=== PATIENT | female | born 1980 | race Caucasian/White ===

== ENCOUNTER 2022-09-19 08:03 | Emergency (ER) | payer OTHER ==
[~2022-09-19] VITALS: Ht 157.5 cm; Wt 64.9 kg
[2022-09-19 08:07] VITALS: BP 115/68
--- NOTE | 2022-09-19 08:15 | NUR ---
41YO FEMALE PT C/O HEADACHE , COUGH AND INTERMITTENT FEVERS X5DAYS. MILD RELIEF AFTER ROBITUSSIN OR TYLENOL. MOIST COUGH PRESENT. GRACE LUNG SOUNDS. DENIES CHEST PAIN, SOB, N/V/D OR ANYONE SICK AT HOME. PT AAOX4, RESPIRATIONS EVEN AND UNLABORED. HOB POSITIONED PER COMFORT. HX:DENIES NKA
--- NOTE | 2022-09-19 08:16 | NUR ---
41/F PRESENTS TO ED WITH C/O COUGH, INTERMITTENT FEVERS AND HEADACHE X3 DAYS, REPORTS TAKING TYLENOL AND OTC COUGH MEDS WITH NO RELIEF. PATIENT DENIES SOB, N/V/D OR RECENT SICK CONTACTS.
--- NOTE | 2022-09-19 08:49 | NUR ---
pt swabbed for covid(hong) and flu. walked and handed to lab
[2022-09-19] MEDS ORDERED: FLONAS NS ×2 (09:00→09:19)
[2022-09-19] MEDS ORDERED: SUD30 PO ×2 (09:00→09:19)
[2022-09-19] MEDS ORDERED: AMOX1TAB8 PO ×2 (09:00→09:19)
[2022-09-19] MEDS ORDERED: BENZ150C2 PO ×2 (09:00→09:19)
[2022-09-19] MEDS ORDERED: PROM118S5 PO ×2 (09:00→09:19)
--- NOTE | 2022-09-19 09:15 | NUR ---
Patient discharged with v/s stable. Written and verbal after care instructions FOR SINUSITIS, COUGH, AND SINUS HEADACHE given and explained. Patient alert, oriented and verbalized understanding of instructions. Ambulatory with steady gait. All questions addressed prior to discharge. ID band removed. Patient advised to follow up with PMD. Rx of AMOXICILLIN, BENZONATATE,FLONASE NASAL, PROMETHEZINE AND SUDAFED given. Opportunity to ask questions provided and answered.
--- NOTE | 2022-09-19 09:16 | NUR ---
The patient's care was reviewed and supervised by Jessica Wasserman RN.
== END 2022-09-19 09:15 | disposition home or self-care (01) ==
LOC: MED 08:03
DX: J06.9 Acute upper respiratory infection, unspecified (principal); Z20.822 Contact with and (suspected) exposure to COVID-19; R09.82 Postnasal drip; J01.90 Acute sinusitis, unspecified
CPT/HCPCS: 99283

== ENCOUNTER 2022-11-16 17:29 | Emergency (ER) | payer OTHER ==
[~2022-11-16] VITALS: Ht 162.6 cm; Wt 64.4 kg
[~2022-11-16 17:29] MED LIST: AMOX1TAB8 PO; BENZ150C2 PO; FLONAS NS; PROM118S5 PO; SUD30 PO
[2022-11-16 18:07] VITALS: BP 123/87
--- NOTE | 2022-11-16 18:40 | NUR ---
GAYLA BRAGG examining patient.
[2022-11-16] MEDS ORDERED: FLONAS NS (18:47)
[2022-11-16] MEDS ORDERED: ALBU0.0912 IH (18:47)
[2022-11-16] MEDS ORDERED: LORA1T1237 PO (18:47)
[2022-11-16] MEDS ORDERED: PROM118S5 PO (18:47)
[2022-11-16 19:00] VITALS: BP 117/87
--- NOTE | 2022-11-16 19:00 | NUR ---
Patient discharged with v/s stable. Written and verbal after care instructions given and explained. Patient alert, oriented and verbalized understanding of instructions. Ambulatory with steady gait. All questions addressed prior to discharge. ID band removed. Patient advised to follow up with PMD. Rx of Albuterol Sulfate, Flonase, Claritin-D and Promethazine-DM given. Patient educated on indication of medication including possible reaction and side effects. Opportunity to ask questions provided and answered.
== END 2022-11-16 19:00 | disposition home or self-care (01) ==
LOC: MED 17:29
DX: R05.9 Cough, unspecified (principal); R03.0 Elevated blood-pressure reading, without diagnosis of hypertension; Z79.899 Other long term (current) drug therapy
CPT/HCPCS: 99283

== ENCOUNTER 2023-02-17 10:31 | Emergency (ER) | payer OTHER ==
[~2023-02-17] VITALS: Ht 160 cm; Wt 66.2 kg
[~2023-02-17 10:31] MED LIST changes: +ALBU0.0912 IH; +LORA1T1237 PO
[2023-02-17 10:57] VITALS: BP 111/69; PULSE 80; RESP 16; TEMP 97.8; O2SAT 98
--- NOTE | 2023-02-17 11:10 | NUR ---
PT W/C ASSISTED TO BED 7
--- NOTE | 2023-02-17 11:24 | NUR ---
42YO FEMALE PT C/O INCREASED SHARP/TIGHT LOWER BACK PAIN X1WEEK. REPORTS INITIAL ONSET [id number] AFTER SITTING FOR LONG PERIOD OF TIME DURING ROADTRIP. RADIATION TO LOWER ABD/PELVIC AND L LEG. PAIN AT MOST ON MOVEMENT. DENIES N/V/D, INJURY, DYSURIA, FEVER , CHILLS OR RELIEF AFTER IBUPROFEN. BACK NON TENDER. PT AAOX4, HOB POSITIONED PER COMFORT. CALL LIGHT WITHIN REACH. HX: DENIES NKA
--- NOTE | 2023-02-17 11:41 | NUR ---
MD ECHEVARRIA AT BEDSIDE FOR EVALUATION
[2023-02-17] MEDS ORDERED: CYCLOBENZAPRINE 10 MG TAB PO ONE (11:45)
[2023-02-17] MEDS ORDERED: KETOROLAC 30 MG/ML VIAL IM ONE (11:45)
[2023-02-17] MEDS ORDERED: LIDOCAINE 5% 1 EA PATCH TP ONE (11:45)
[2023-02-17 13:06] LABS: BASOPHILS % (AUTO) 0.3 % (0.0-2.0); EOSINOPHILS # (AUTO) 0.1 K/uL (0-0.4); EOSINOPHILS % (AUTO) 1.6 % (0.0-4.0); HEMATOCRIT 39.3 % (36-48); HEMOGLOBIN 13.4 g/dL (12.0-16.0); LYMPHOCYTES # (AUTO) 2.3 K/uL (2.5-16.5); LYMPHOCYTES % (AUTO) 32.5 % (20.5-51.1); MEAN CORPUSCULAR HEMOGLOBIN 32 pg (27-31); MEAN CORPUSCULAR HGB CONC 34 g/dL (33-37); MEAN CORPUSCULAR VOLUME 93.3 fL (80-94); MONOCYTES # (AUTO) 0.6 K/uL (0.8-1.0); MONOCYTES % (AUTO) 7.8 % (1.7-9.3); NEUTROPHILS # (AUTO) 4.2 K/uL (1.8-7.7); NEUTROPHILS % (AUTO) 57.8 % (42.2-75.2); PLATELET COUNT (AUTO) 314 K/uL (140-450); RED BLOOD CELL COUNT(AUTO) 4.22 MIL/uL (4.20-5.40); RED CELL DISTRIBUTION WIDTH 12.7 % (11.6-13.7); WHITE BLOOD COUNT (AUTO) 7.2 K/uL (4.8-10.8)
[2023-02-17 13:19] LABS: ALBUMIN 3.6 g/dL (3.4-5.0); ANION GAP 12.1 (8-16); CARBON DIOXIDE 26.9 mmol/L (21-32); CREATININE 0.7 mg/dL (0.6-1.3); TOTAL BILIRUBIN 0.3 mg/dL (0.0-1.0)
[2023-02-17] MEDS ORDERED: ONDANSETRON 4 MG ODT PO ONE (13:20)
[2023-02-17] MEDS ORDERED: HYDROcodone/APAP 5/325 MG 1 TAB TAB PO ONE (13:20)
[2023-02-17 13:50] VITALS: O2SAT 99
[2023-02-17] MEDS ORDERED: CYCL-711 PO (14:23)
[2023-02-17] MEDS ORDERED: IBUP-2213 PO (14:23)
[2023-02-17] MEDS ORDERED: MAGN296S70 PO (14:23)
[2023-02-17] MEDS ORDERED: ACET-10509 PO (14:23)
[2023-02-17] MEDS ORDERED: LIDO1ADH54 TP (14:23)
[2023-02-17] MEDS ORDERED: MIRABULK PO (14:23)
[2023-02-17 14:27] LABS: APPEARANCE,URINE CLEAR (CLEAR); BILIRUBIN,URINE NEGATIVE (NEGATIVE); BLOOD, URINE 2+ (NEGATIVE); COLOR,URINE YELLOW (YELLOW); LEUKOCYTE ESTERASE ,URINE NEGATIVE (NEGATIVE); NITRITE, URINE NEGATIVE (NEGATIVE); UGLUCOSE NEGATIVE (NEGATIVE)
[2023-02-17 14:39] LABS: OTHER CASTS, URINE EPITHELIAL CASTS 1+ /LPF (None Seen)
[2023-02-17 14:46] VITALS: BP 107/66; PULSE 57; RESP 16; TEMP 98; O2SAT 97
--- NOTE | 2023-02-17 14:46 | NUR ---
Patient discharged with v/s stable. Written and verbal after care instructions given and explained. Patient alert, oriented and verbalized understanding of instructions. Ambulatory with steady gait. All questions addressed prior to discharge. ID band removed. Patient advised to follow up with PMD. Rx of TYLENOL, FLEXERIL, MOTRIN, LIDOCAINE, MAG CITRATE, AND MIRALAX given. Patient educated on indication of medication including possible reaction and side effects. Opportunity to ask questions provided and answered. Pt instructed to return to the ER if condition worsens or to call 911 if needed for an emergency.
== END 2023-02-17 14:46 | disposition home or self-care (01) ==
LOC: MED 10:31
DX: S39.012A Strain of muscle, fascia and tendon of lower back, initial encounter (principal); K59.00 Constipation, unspecified; Z79.899 Other long term (current) drug therapy; X58.XXXA Exposure to other specified factors, initial encounter; Y93.89 Activity, other specified; Y92.89 Other specified places as the place of occurrence of the external cause; Y99.8 Other external cause status
CPT/HCPCS: 36415; 72110; 74176; 80053; 81001; 81025; 83690; 85025; 96372; 99285; J1885; Q0162